=== PATIENT | female | born 1975 | race Caucasian/White ===

== ENCOUNTER 2016-08-29 19:35 | Emergency (ER) | payer MEDICAID ==
[~2016-08-29] VITALS: Ht 152.4 cm; Wt 120.0 kg
[~2016-08-29 19:35] MED LIST: Aspirin PO; IOHEXOL-350 100 ML BOTTLE ONE; LISI10TA5 PO; SODIUM CHLORIDE 0.9% 10ML VIAL ONE
[2016-08-29 21:43] LABS: BASOPHILS % 0.6 % (0.0-2.0); DIFFERENTIAL COMMENT 0; EOSINOPHILS % 0.6 % (0.0-5.0); HEMATOCRIT. 35.2 % (36.0-48.0); HEMOGLOBIN. 11.2 g/dL (12.0-16.0); LYMPHOCYTES % 13.3 % (20.0-50.0); MEAN CORPUSCULAR HEMOGLOBIN 22.7 pg (28.0-32.0); MEAN CORPUSCULAR HGB CONC 31.7 g/dL (31.0-37.0); MEAN CORPUSCULAR VOLUME 71.3 fL (81.0-99.0); MEAN PLATELET VOLUME 8.7 fl (7.4-10.4); MONOCYTES % 5.8 % (2.0-8.0); NEUTROPHILS % 79.7 % (40.0-76.0); PLATELET 252 x1000/uL (130-400); RED BLOOD CELL COUNT 4.94 mill/uL (4.2-5.4); RED CELL DISTRIBUTION WIDTH 15.5 % (11.6-14.6); WHITE BLOOD COUNT 15.8 x1000/uL (4.5-11.0)
[2016-08-29 21:45] LABS: PROTHROMBIN TIME 10.4 sec
[2016-08-29 21:49] LABS: ALANINE AMINOTRANSFERASE 23 IU/L (13-61); ALBUMIN 3.3 g/dL (3.4-5.0); ANION GAP 15; CALCIUM 8.5 mg/dL (8.5-10.1); CARBON DIOXIDE 28 mEq/L (21-32); CHLORIDE 100 mEq/L (98-107); INDEX HEMOLYSI 1 (1-3); INDEX ICTERIC 1 (1-4); INDEX LIPEMIC 1 (1-3); LIPASE 219 IU/L (73-393); UREA NITROGEN BLOOD 14 mg/dL (7-21)
[2016-08-29 21:53] LABS: eGFR > 60 mL/min (>60)
[2016-08-29 21:54] LABS: TROPONIN I < 0.02 ng/mL (0.00-0.04)
[2016-08-29] MEDS ORDERED: KETOROLAC 30MG/ML VIAL IV ONE (22:45)
[2016-08-30] MEDS: PENICILLIN G BENZATHINE 1,200,000 UNITS/2ML SYR IM NR ×3 (00:50→02:19)
[2016-08-30] MEDS ORDERED: SODIUM CHLORIDE 0.9% 1,000 ML IV ONE ×2 (02:15)
[2016-08-30] MEDS ORDERED: TRAMADOL 50MG TABLET PO NR (02:15)
[2016-08-30 04:27] VITALS: BP 145/91
== END 2016-08-30 05:50 | disposition home or self-care (01) ==
LOC: ER 22:13
DX: J02.9 Acute pharyngitis, unspecified (principal); E86.9 Volume depletion, unspecified; R00.0 Tachycardia, unspecified; I10 Essential (primary) hypertension; Z79.82 Long term (current) use of aspirin; Z98.51 Tubal ligation status
CPT/HCPCS: 36415; 71010; 71275; 80053; 83690; 84484; 85025; 85610; 85730; 93005; 96361; 96372; 96374; 99285; A4216; J0561; J1885; J7030; Q9967; Z7610

== ENCOUNTER 2016-09-23 08:10 | Emergency (ER) | payer MEDICAID ==
[~2016-09-23] VITALS: Ht 149.9 cm; Wt 118.0 kg
[~2016-09-23 08:10] MED LIST changes: -IOHEXOL-350 100 ML BOTTLE ONE; -SODIUM CHLORIDE 0.9% 10ML VIAL ONE
[2016-09-23] MEDS ORDERED: MORPHINE SULFATE 4 MG/ML CPJ (NOT FOR IM USE) IV ONE ×2 (08:45→09:00)
[2016-09-23] MEDS ORDERED: ONDANSETRON HCL 4MG/2ML VIAL IV ONE (08:45)
[2016-09-23] MEDS ORDERED: SODIUM CHLORIDE 0.9% 1,000 ML IV ONE (08:53)
[2016-09-23 09:10] LABS: BASOPHILS % 0.3 % (0.0-2.0); DIFFERENTIAL COMMENT 0; EOSINOPHILS % 2.1 % (0.0-5.0); HEMATOCRIT. 34.1 % (36.0-48.0); HEMOGLOBIN. 10.9 g/dL (12.0-16.0); LYMPHOCYTES % 37.1 % (20.0-50.0); MEAN CORPUSCULAR HEMOGLOBIN 22.5 pg (28.0-32.0); MEAN CORPUSCULAR HGB CONC 31.9 g/dL (31.0-37.0); MEAN CORPUSCULAR VOLUME 70.5 fL (81.0-99.0); MEAN PLATELET VOLUME 8.4 fl (7.4-10.4); MONOCYTES % 7.2 % (2.0-8.0); NEUTROPHILS % 53.3 % (40.0-76.0); PLATELET 293 x1000/uL (130-400); RED BLOOD CELL COUNT 4.84 mill/uL (4.2-5.4); RED CELL DISTRIBUTION WIDTH 15.8 % (11.6-14.6); WHITE BLOOD COUNT 8.3 x1000/uL (4.5-11.0)
[2016-09-23 09:18] LABS: CHLORIDE 103 mEq/L (98-107)
[2016-09-23 09:27] LABS: ALANINE AMINOTRANSFERASE 25 IU/L (13-61); ALBUMIN 3.1 g/dL (3.4-5.0); ANION GAP 13; CALCIUM 8.5 mg/dL (8.5-10.1); CARBON DIOXIDE 26 mEq/L (21-32); INDEX HEMOLYSI 1 (1-3); INDEX ICTERIC 1 (1-4); INDEX LIPEMIC 1 (1-3); UREA NITROGEN BLOOD 21 mg/dL (7-21); eGFR > 60 mL/min (>60)
[2016-09-23 10:31] VITALS: BP 150/75
== END 2016-09-23 10:38 | disposition home or self-care (01) ==
LOC: ER 08:49
DX: T21.21XA Burn of second degree of chest wall, initial encounter (principal); T31.0 Burns involving less than 10% of body surface; I10 Essential (primary) hypertension; E78.00 Pure hypercholesterolemia, unspecified; E11.9 Type 2 diabetes mellitus without complications; X11.8XXA Contact with other hot tap-water, initial encounter; Y93.89 Activity, other specified; Y92.89 Other specified places as the place of occurrence of the external cause; Y99.8 Other external cause status; Z98.890 Other specified postprocedural states
CPT/HCPCS: 36415; 80053; 85025; 96361; 96374; 96375; 96376; 99284; J2270; J2405; J7030; Z7610

== ENCOUNTER 2017-02-21 14:27 | Emergency (ER) | payer MEDICAID ==
[~2017-02-21] VITALS: Ht 149.9 cm; Wt 131.0 kg
[2017-02-21] MEDS ORDERED: IBUP-2030 PO (14:41)
[2017-02-21] MEDS: ACETAMINOPHEN 325MG TABLET PO STA (15:22)
[2017-02-21] MEDS: SODIUM CHLORIDE 0.9% 1,000 ML IV ONE (15:40)
[2017-02-21 15:51] LABS: CLARITY URINE CLOUDY (CLEAR); COLOR URINE YELLOW (YELLOW); GLUCOSE URINE NEGATIVE (NEGATIVE); KETONES URINE NEGATIVE (NEGATIVE); LEUKOCYTE ESTERASE URINE 2+ (NEGATIVE); NITRITE URINE NEGATIVE (NEGATIVE); OCCULT BLOOD URINE 3+ (NEGATIVE); PH URINE 5.5 (4.5-8.0); PROTEIN URINE 2+ (NEGATIVE); SPECIFIC GRAVITY URINE 1.016 (1.005-1.030); UROBILINOGEN URINE 0.2 E.U./dL (0.2-1.0)
[2017-02-21 15:55] LABS: BASOPHILS % 0.3 % (0.0-2.0); EOSINOPHILS % 0.4 % (0.0-5.0); HEMATOCRIT. 32.7 % (36.0-48.0); HEMOGLOBIN. 10.2 g/dL (12.0-16.0); LYMPHOCYTES % 13.3 % (20.0-50.0); MEAN CORPUSCULAR HEMOGLOBIN 19.8 pg (28.0-32.0); MEAN CORPUSCULAR VOLUME 63.7 fL (81.0-99.0); MEAN PLATELET VOLUME 8.6 fl (7.4-10.4); MONOCYTES % 4.1 % (2.0-8.0); NEUTROPHILS % 81.9 % (40.0-76.0); PLATELET 339 x1000/uL (130-400); RED BLOOD CELL COUNT 5.14 mill/uL (4.2-5.4); RED CELL DISTRIBUTION WIDTH 17.4 % (11.6-14.6)
[2017-02-21 16:05] LABS: CARBON DIOXIDE 29 mEq/L (21-32); CHLORIDE 102 mEq/L (98-107)
[2017-02-21 18:17] VITALS: BP 107/69
[2017-02-21 18:25] LABS: PLATELET ESTIMATE NORMAL
== END 2017-02-21 18:18 | disposition home or self-care (01) ==
LOC: ER 14:27
DX: N39.0 Urinary tract infection, site not specified (principal); R73.9 Hyperglycemia, unspecified; D63.1 Anemia in chronic kidney disease; E78.00 Pure hypercholesterolemia, unspecified; I12.9 Hypertensive chronic kidney disease with stage 1 through stage 4 chronic kidney disease, or unspecified chronic kidney disease; N18.9 Chronic kidney disease, unspecified; Z98.890 Other specified postprocedural states
CPT/HCPCS: 36415; 74000; 80053; 81001; 81025; 83690; 85025; 93005; 96360; 96361; 99285; J7030

== ENCOUNTER 2017-02-23 16:39 | Emergency (ER) | payer MEDICAID ==
[~2017-02-23] VITALS: Ht 152.4 cm; Wt 129.0 kg
[~2017-02-23 16:39] MED LIST changes: +IBUP-2030 PO
[2017-02-24] MEDS ORDERED: KETOROLAC 30MG/ML VIAL IV STA (00:27)
[2017-02-24] MEDS ORDERED: SODIUM CHLORIDE 0.9% 1,000 ML IV ONE ×2 (00:27→01:32)
[2017-02-24] MEDS ORDERED: ONDANSETRON HCL 4MG/2ML VIAL IV STA (00:27)
[2017-02-24 00:44] LABS: CLARITY URINE CLOUDY (CLEAR); COLOR URINE YELLOW (YELLOW); GLUCOSE URINE NEGATIVE (NEGATIVE); KETONES URINE NEGATIVE (NEGATIVE); LEUKOCYTE ESTERASE URINE NEGATIVE (NEGATIVE); NITRITE URINE NEGATIVE (NEGATIVE); OCCULT BLOOD URINE 1+ (NEGATIVE); PH URINE 5.5 (4.5-8.0); PROTEIN URINE 3+ (NEGATIVE); SPECIFIC GRAVITY URINE 1.021 (1.005-1.030)
[2017-02-24 00:45] LABS: BASOPHILS % 0.3 % (0.0-2.0); HEMATOCRIT. 30.9 % (36.0-48.0); HEMOGLOBIN. 9.8 g/dL (12.0-16.0); LYMPHOCYTES % 10.6 % (20.0-50.0); MEAN CORPUSCULAR HEMOGLOBIN 20.2 pg (28.0-32.0); MEAN CORPUSCULAR VOLUME 63.5 fL (81.0-99.0); MEAN PLATELET VOLUME 9.2 fl (7.4-10.4); MONOCYTES % 9.8 % (2.0-8.0); NEUTROPHILS % 79.3 % (40.0-76.0); PLATELET 196 x1000/uL (130-400); RED BLOOD CELL COUNT 4.87 mill/uL (4.2-5.4); RED CELL DISTRIBUTION WIDTH 17.6 % (11.6-14.6)
[2017-02-24 00:47] LABS: HCG SCREEN NEGATIVE
[2017-02-24 00:50] LABS: PLATELET ESTIMATE NORMAL
[2017-02-24 00:56] LABS: CARBON DIOXIDE 28 mEq/L (21-32); CHLORIDE 97 mEq/L (98-107); ETHANOL BLOOD < 10 mg/dL; TROPONIN I < 0.02 ng/mL (0.00-0.04)
[2017-02-24 01:02] LABS: *AMPHETAMINES SCREEN URINE NEGATIVE (NEGATIVE); *BARBITURATES SCREEN URINE NEGATIVE (NEGATIVE); *BENZODIAZEPINES SCREEN URINE NEGATIVE (NEGATIVE); *COCAINE SCREEN URINE NEGATIVE (NEGATIVE); CANNABINOID URINE SCREEN NEGATIVE (NEGATIVE); METHADONE URINE SCREEN NEGATIVE (NEGATIVE); OPIATES URINE SCREEN NEGATIVE (NEGATIVE); PHENCYCLIDINE URINE SCREEN NEGATIVE (NEGATIVE)
[2017-02-24] MEDS ORDERED: ACETAMINOPHEN 500MG TABLET PO SCH (01:53)
[2017-02-24] MEDS ORDERED: CEFTRIAXONE 1 G PREMIX 50 ML IV SCH (03:45)
[2017-02-24 05:01] VITALS: BP 144/79
== END 2017-02-24 05:51 | disposition home or self-care (01) ==
LOC: ER 17:11
DX: N39.0 Urinary tract infection, site not specified (principal); E87.6 Hypokalemia; D64.9 Anemia, unspecified; I10 Essential (primary) hypertension; E78.00 Pure hypercholesterolemia, unspecified; Z79.82 Long term (current) use of aspirin
CPT/HCPCS: 36415; 74176; 80053; 80305; 81001; 83690; 84484; 84703; 85025; 96374; 96375; 99285; G0482; J0696; J1885; J2405; J7030; Z7610

== ENCOUNTER 2018-04-25 21:59 | Emergency (ER) | payer MEDICAID ==
[~2018-04-25] VITALS: Ht 149.9 cm; Wt 125.0 kg
[2018-04-26] MEDS ORDERED: IBUPROFEN 600MG TABLET PO ONE (02:30)
[2018-04-26 02:41] VITALS: BP 122/74
[2018-04-26 02:47] LABS: BASOPHILS % 0.5 % (0.0-2.0); EOSINOPHILS % 1.6 % (0.0-5.0); HEMATOCRIT. 29.9 % (36.0-48.0); HEMOGLOBIN. 9.5 g/dL (12.0-16.0); LYMPHOCYTES % 42.3 % (20.0-50.0); MEAN CORPUSCULAR VOLUME 66.1 fL (81.0-99.0); MEAN PLATELET VOLUME 8.2 fl (7.4-10.4); MONOCYTES % 6.1 % (2.0-8.0); NEUTROPHILS % 49.5 % (40.0-76.0); PLATELET 290 x1000/uL (130-400); RED BLOOD CELL COUNT 4.52 mill/uL (4.2-5.4); RED CELL DISTRIBUTION WIDTH 17.2 % (11.6-14.6)
[2018-04-26 02:54] LABS: CHLORIDE 106 mEq/L (98-107)
[2018-04-26 02:56] LABS: HCG SCREEN NEGATIVE
[2018-04-26 03:47] LABS: PLATELET ESTIMATE NORMAL
== END 2018-04-26 06:18 | disposition home or self-care (01) ==
LOC: ER 21:59
DX: N83.292 Other ovarian cyst, left side (principal); N93.8 Other specified abnormal uterine and vaginal bleeding; D50.9 Iron deficiency anemia, unspecified; I10 Essential (primary) hypertension; Z98.890 Other specified postprocedural states; Z79.82 Long term (current) use of aspirin
CPT/HCPCS: 36415; 76830; 76856; 81025; 84703; 86850; 86900; 99284

== ENCOUNTER 2018-06-03 21:30 | Emergency (ER) | payer MEDICAID ==
[~2018-06-03] VITALS: Ht 149.9 cm; Wt 121.0 kg
[2018-06-04 01:28] LABS: CLARITY URINE TURBID (CLEAR); KETONES URINE TRACE (NEGATIVE); LEUKOCYTE ESTERASE URINE 1+ (NEGATIVE); NITRITE URINE NEGATIVE (NEGATIVE); OCCULT BLOOD URINE 3+ (NEGATIVE); PH URINE 5.5 (4.5-8.0); PROTEIN URINE 2+ (NEGATIVE); SPECIFIC GRAVITY URINE 1.021 (1.005-1.030); UROBILINOGEN URINE 0.2 E.U./dL (0.2-1.0)
[2018-06-04 01:33] LABS: COLOR URINE BLOODY (YELLOW)
[2018-06-04] MEDS ORDERED: ACETAMINOPHEN 325MG TABLET PO STA (03:11)
[2018-06-04 05:02] LABS: BASOPHILS % 0.3 % (0.0-2.0); EOSINOPHILS % 1.5 % (0.0-5.0); HEMATOCRIT. 31.7 % (36.0-48.0); LYMPHOCYTES % 39.6 % (20.0-50.0); MEAN CORPUSCULAR HEMOGLOBIN 20.8 pg (28.0-32.0); MEAN PLATELET VOLUME 8.6 fl (7.4-10.4); MONOCYTES % 6.9 % (2.0-8.0); NEUTROPHILS % 51.7 % (40.0-76.0); PLATELET 311 x1000/uL (130-400); RED CELL DISTRIBUTION WIDTH 18.3 % (11.6-14.6)
[2018-06-04 05:05] LABS: CHLORIDE 102 mEq/L (98-107)
[2018-06-04 05:15] LABS: B-HCG QUANTITATIVE < 1 mIU/mL (<3)
[2018-06-04 06:59] VITALS: BP 125/67
[2018-06-04 08:05] LABS: PLATELET ESTIMATE NORMAL
== END 2018-06-04 07:01 | disposition home or self-care (01) ==
LOC: ER 21:30
DX: N93.8 Other specified abnormal uterine and vaginal bleeding (principal); I11.9 Hypertensive heart disease without heart failure
CPT/HCPCS: 36415; 76830; 76856; 80053; 81003; 81025; 84702; 85025; 99284; Z7610

== ENCOUNTER 2019-09-06 09:41 | Emergency (ER) | payer MEDICAID ==
[~2019-09-06] VITALS: Ht 149.9 cm; Wt 125.0 kg
[2019-09-06] MEDS ORDERED: HYDRALAZINE 20MG/ML VIAL IV ONE (10:15)
[2019-09-06 10:19] LABS: BASOPHILS % 0.8 % (0.0-2.0); EOSINOPHILS % 1.6 % (0.0-5.0); HEMATOCRIT. 40.9 % (36.0-48.0); HEMOGLOBIN. 13.6 g/dL (12.0-16.0); LYMPHOCYTES % 35.5 % (20.0-50.0); MEAN CORPUSCULAR HEMOGLOBIN 25.9 pg (28.0-32.0); MEAN CORPUSCULAR VOLUME 77.8 fL (81.0-99.0); MEAN PLATELET VOLUME 9.4 fl (7.4-10.4); MONOCYTES % 6.2 % (2.0-8.0); NEUTROPHILS % 55.9 % (40.0-76.0); PLATELET 235 x1000/uL (130-400); RED BLOOD CELL COUNT 5.26 mill/uL (4.2-5.4); RED CELL DISTRIBUTION WIDTH 16.4 % (11.6-14.6)
[2019-09-06 10:28] LABS: CHLORIDE 101 mEq/L (98-107)
[2019-09-06 11:47] VITALS: BP 190/115
== END 2019-09-06 11:57 | disposition home or self-care (01) ==
LOC: ER 09:41
DX: I10 Essential (primary) hypertension (principal); R73.9 Hyperglycemia, unspecified; Z98.890 Other specified postprocedural states; Z79.82 Long term (current) use of aspirin
CPT/HCPCS: 36415; 71045; 80053; 83880; 84484; 85025; 93005; 96374; 99285; J0360

== ENCOUNTER 2020-01-06 03:19 | Inpatient (IN) | payer MEDICAID ==
[~2020-01-06] VITALS: Ht 144.8 cm; Wt 133.5 kg
[2020-01-06 04:47] LABS: BASOPHILS % 1.1 % (0.0-2.0); EOSINOPHILS % 1.2 % (0.0-5.0); HEMATOCRIT. 38.1 % (36.0-48.0); HEMOGLOBIN. 12.8 g/dL (12.0-16.0); LYMPHOCYTES % 20.6 % (20.0-50.0); MEAN CORPUSCULAR HEMOGLOBIN 27.1 pg (28.0-32.0); MEAN CORPUSCULAR VOLUME 80.9 fL (81.0-99.0); MEAN PLATELET VOLUME 9.1 fl (7.4-10.4); MONOCYTES % 6.1 % (2.0-8.0); PLATELET 237 x1000/uL (130-400); RED BLOOD CELL COUNT 4.71 mill/uL (4.2-5.4); RED CELL DISTRIBUTION WIDTH 14.2 % (11.6-14.6)
[2020-01-06 04:51] LABS: CHLORIDE 106 mEq/L (98-107)
[2020-01-06] MEDS ORDERED: MORPHINE SULFATE 4 MG/ML CPJ (NOT FOR IM USE) IV ONE ×2 (05:00→08:00)
[2020-01-06] MEDS ORDERED: ONDANSETRON HCL 4MG/2ML INJ IV ONE (05:00)
[2020-01-06 06:03] LABS: CLARITY URINE CLEAR (CLEAR); COLOR URINE YELLOW (YELLOW); KETONES URINE NEGATIVE (NEGATIVE); LEUKOCYTE ESTERASE URINE 3+ (NEGATIVE); NITRITE URINE NEGATIVE (NEGATIVE); OCCULT BLOOD URINE NEGATIVE (NEGATIVE); PROTEIN URINE 1+ (NEGATIVE); SPECIFIC GRAVITY URINE 1.022 (1.005-1.030); UROBILINOGEN URINE 0.2 E.U./dL (0.2-1.0)
[2020-01-06] MEDS ORDERED: KCL 20MEQ/100ML PREMIX 100 ML IV ONE (09:15)
[2020-01-06] MEDS ORDERED: METRONIDAZOLE 500 MG PREMIX 100 ML IV ONE (09:15)
[2020-01-06] MEDS ORDERED: CEFTRIAXONE 1 G PREMIX 50 ML IV ONE (09:15)
[2020-01-06] MEDS ORDERED: CEFTRIAXONE 1 G PREMIX 50 ML IV SCH (09:45)
[2020-01-06] MEDS ORDERED: MORPHINE SULFATE 2 MG/ML CPJ (NOT FOR IM USE) IV PRN (09:45)
[2020-01-06] MEDS ORDERED: ACETAMINOPHEN 325MG TABLET PO PRN (09:45)
[2020-01-06] MEDS ORDERED: IPRATROPIUM/ALBUTEROL 0.5-3(2.5)MG/3ML NEB HHN PRN (09:45)
[2020-01-06] MEDS ORDERED: ONDANSETRON HCL 4MG/2ML INJ IV PRN (09:45)
[2020-01-06] MEDS ORDERED: CLONIDINE 0.1MG TABLET PO PRN (09:45)
[2020-01-06] MEDS ORDERED: DIPHENHYDRAMINE 50MG/ML VIAL IV PRN (09:45)
[2020-01-06] MEDS: SODIUM CHLORIDE 0.9% 1,000 ML IV SCH ×2 (11:04→21:20)
[2020-01-06] MEDS ORDERED: DEXTROSE 50% WATER 50ML SYRINGE IV PRN (11:15)
[2020-01-06 12:00] VITALS: BP 144/85
[2020-01-06 12:34] VITALS: BP 144/85
[2020-01-06] MEDS: INSULIN LISPRO 100 UNITS/ML SUBCUT SCH ×3 (12:35→20:15)
[2020-01-06] MEDS: BLOOD SUGAR DIAGNOSTIC STRIP TEST SCH ×3 (12:35→20:04)
[2020-01-06] MEDS ORDERED: METF-414 MT (12:38)
[2020-01-06] MEDS ORDERED: AMLO5TAB88 PO (12:39)
[2020-01-06] MEDS ORDERED: GLIM1TAB MT (12:39)
[2020-01-06] MEDS ORDERED: ATOR20TA65 MT (12:39)
[2020-01-06] MEDS ORDERED: LOSA1TAB34 MT (12:40)
[2020-01-06 16:00] VITALS: BP 165/100
[2020-01-06] MEDS: MORPHINE SULFATE 2 MG/ML CPJ (NOT FOR IM USE) IV PRN ×2 (16:18→20:04)
[2020-01-06] MEDS: METFORMIN HCL 500MG TABLET PO SCH (17:23)
[2020-01-06] MEDS ORDERED: METRONIDAZOLE 500 MG PREMIX 100 ML IV SCH (18:00)
[2020-01-06 20:00] VITALS: BP 119/66
[2020-01-06] MEDS: AMLODIPINE 5MG TABLET PO SCH (20:03)
[2020-01-06] MEDS: ATORVASTATIN CALCIUM 20MG TABLET PO SCH (20:04)
[2020-01-06] MEDS: METRONIDAZOLE 500 MG PREMIX 100 ML IV SCH (21:22)
[2020-01-07] VITALS: BP 129/67
[2020-01-07 04:00] VITALS: BP 134/85
[2020-01-07 05:57] LABS: BASOPHILS % 0.3 % (0.0-2.0); EOSINOPHILS % 2.4 % (0.0-5.0); HEMATOCRIT. 32.5 % (36.0-48.0); HEMOGLOBIN. 10.8 g/dL (12.0-16.0); LYMPHOCYTES % 30.2 % (20.0-50.0); MEAN CORPUSCULAR HEMOGLOBIN 26.9 pg (28.0-32.0); MEAN CORPUSCULAR VOLUME 80.7 fL (81.0-99.0); MEAN PLATELET VOLUME 9.4 fl (7.4-10.4); MONOCYTES % 5.9 % (2.0-8.0); NEUTROPHILS % 61.2 % (40.0-76.0); PLATELET 217 x1000/uL (130-400); RED BLOOD CELL COUNT 4.03 mill/uL (4.2-5.4); RED CELL DISTRIBUTION WIDTH 14.1 % (11.6-14.6)
[2020-01-07 06:13] LABS: CHLORIDE 106 mEq/L (98-107)
[2020-01-07 06:21] LABS: LDL CHOLESTEROL 72 mg/dL (5-100)
[2020-01-07 06:23] LABS: HDL CHOLESTEROL 40 mg/dL (40-59)
[2020-01-07] MEDS: BLOOD SUGAR DIAGNOSTIC STRIP TEST SCH ×4 (06:51→20:36)
[2020-01-07] MEDS: METRONIDAZOLE 500 MG PREMIX 100 ML IV SCH ×3 (06:51→21:34)
[2020-01-07] MEDS: GLIMEPIRIDE 1MG TABLET PO SCH (06:53)
[2020-01-07] MEDS: METFORMIN HCL 500MG TABLET PO SCH ×2 (06:53→16:46)
[2020-01-07] MEDS: SODIUM CHLORIDE 0.9% 1,000 ML IV SCH (06:55)
[2020-01-07] MEDS: INSULIN LISPRO 100 UNITS/ML SUBCUT SCH ×4 (07:13→20:37)
[2020-01-07 08:00] VITALS: BP 126/64
[2020-01-07] MEDS: ASPIRIN 81MG TABLET PO SCH (08:39)
[2020-01-07] MEDS: LOSARTAN POTASSIUM 50 MG TABLET PO SCH (08:39)
[2020-01-07] MEDS: LISINOPRIL 10MG TABLET PO SCH (08:39)
[2020-01-07] MEDS: AMLODIPINE 5MG TABLET PO SCH ×2 (08:39→20:37)
[2020-01-07] MEDS: CEFTRIAXONE 1,000 MG in DEXTROSE 5% WATER 50 ML IV SCH (08:40)
[2020-01-07] MEDS ORDERED: CEFTRIAXONE 1,000 MG in DEXTROSE 5% WATER 50 ML IV SCH (10:00)
[2020-01-07] MEDS ORDERED: POTASSIUM CHLORIDE 20MEQ TABLET SR PO NR (11:15)
[2020-01-07 12:00] VITALS: BP 117/75
[2020-01-07 16:00] VITALS: BP 124/82
[2020-01-07 20:00] VITALS: BP 136/86
[2020-01-07] MEDS: ATORVASTATIN CALCIUM 20MG TABLET PO SCH (20:37)
[2020-01-08] VITALS: BP 110/57
[2020-01-08 04:00] VITALS: BP 110/61
[2020-01-08] MEDS: MORPHINE SULFATE 2 MG/ML CPJ (NOT FOR IM USE) IV PRN (04:26)
[2020-01-08] MEDS: METRONIDAZOLE 500 MG PREMIX 100 ML IV SCH ×3 (05:03→21:59)
[2020-01-08] MEDS: BLOOD SUGAR DIAGNOSTIC STRIP TEST SCH ×4 (05:16→21:58)
[2020-01-08] MEDS: INSULIN LISPRO 100 UNITS/ML SUBCUT SCH ×4 (06:21→21:57)
[2020-01-08 07:34] LABS: BASOPHILS % 0.5 % (0.0-2.0); EOSINOPHILS % 2.4 % (0.0-5.0); HEMATOCRIT. 33.1 % (36.0-48.0); HEMOGLOBIN. 11.1 g/dL (12.0-16.0); LYMPHOCYTES % 35.3 % (20.0-50.0); MEAN CORPUSCULAR HEMOGLOBIN 27.3 pg (28.0-32.0); MEAN CORPUSCULAR VOLUME 81.1 fL (81.0-99.0); MEAN PLATELET VOLUME 9.3 fl (7.4-10.4); MONOCYTES % 6.9 % (2.0-8.0); NEUTROPHILS % 54.9 % (40.0-76.0); PLATELET 246 x1000/uL (130-400); RED BLOOD CELL COUNT 4.08 mill/uL (4.2-5.4); RED CELL DISTRIBUTION WIDTH 14.2 % (11.6-14.6)
[2020-01-08 08:00] VITALS: BP 131/89
[2020-01-08 08:21] LABS: CHLORIDE 109 mEq/L (98-107)
[2020-01-08] MEDS: METFORMIN HCL 500MG TABLET PO SCH ×2 (08:25→17:40)
[2020-01-08] MEDS: SODIUM CHLORIDE 0.9% 1,000 ML IV SCH ×2 (08:25→21:55)
[2020-01-08] MEDS: CEFTRIAXONE 1,000 MG in DEXTROSE 5% WATER 50 ML IV SCH (08:25)
[2020-01-08] MEDS: GLIMEPIRIDE 1MG TABLET PO SCH (08:25)
[2020-01-08] MEDS: ASPIRIN 81MG TABLET PO SCH (08:25)
[2020-01-08] MEDS: AMLODIPINE 5MG TABLET PO SCH ×2 (08:26→21:56)
[2020-01-08] MEDS: LOSARTAN POTASSIUM 50 MG TABLET PO SCH (08:26)
[2020-01-08] MEDS: LISINOPRIL 10MG TABLET PO SCH (08:26)
[2020-01-08 12:00] VITALS: BP 148/87
[2020-01-08 16:00] VITALS: BP 113/56
[2020-01-08 20:00] VITALS: BP 137/77
[2020-01-08] MEDS: ATORVASTATIN CALCIUM 20MG TABLET PO SCH (21:56)
[2020-01-09] VITALS: BP 160/69
[2020-01-09 04:00] VITALS: BP 135/80
[2020-01-09 06:22] LABS: CHLORIDE 108 mEq/L (98-107)
[2020-01-09] MEDS: METRONIDAZOLE 500 MG PREMIX 100 ML IV SCH ×2 (06:29→14:20)
[2020-01-09 06:41] LABS: BASOPHILS % 0.4 % (0.0-2.0); EOSINOPHILS % 2.2 % (0.0-5.0); HEMATOCRIT. 33.6 % (36.0-48.0); HEMOGLOBIN. 11.4 g/dL (12.0-16.0); LYMPHOCYTES % 37.8 % (20.0-50.0); MEAN CORPUSCULAR HEMOGLOBIN 27.3 pg (28.0-32.0); MEAN CORPUSCULAR VOLUME 80.5 fL (81.0-99.0); MEAN PLATELET VOLUME 9.3 fl (7.4-10.4); MONOCYTES % 6.4 % (2.0-8.0); NEUTROPHILS % 53.2 % (40.0-76.0); PLATELET 264 x1000/uL (130-400); RED BLOOD CELL COUNT 4.17 mill/uL (4.2-5.4); RED CELL DISTRIBUTION WIDTH 14.2 % (11.6-14.6)
[2020-01-09] MEDS: SODIUM CHLORIDE 0.9% 1,000 ML IV SCH (06:50)
[2020-01-09] MEDS: BLOOD SUGAR DIAGNOSTIC STRIP TEST SCH ×2 (06:50→12:09)
[2020-01-09] MEDS: INSULIN LISPRO 100 UNITS/ML SUBCUT SCH ×2 (06:50→12:15)
[2020-01-09] MEDS: METFORMIN HCL 500MG TABLET PO SCH (06:56)
[2020-01-09] MEDS: GLIMEPIRIDE 1MG TABLET PO SCH (06:56)
[2020-01-09 08:00] VITALS: BP 142/80
[2020-01-09] MEDS: LOSARTAN POTASSIUM 50 MG TABLET PO SCH (09:36)
[2020-01-09] MEDS: ASPIRIN 81MG TABLET PO SCH (09:36)
[2020-01-09] MEDS: CEFTRIAXONE 1,000 MG in DEXTROSE 5% WATER 50 ML IV SCH (09:36)
[2020-01-09] MEDS: LISINOPRIL 10MG TABLET PO SCH (09:36)
[2020-01-09] MEDS: AMLODIPINE 5MG TABLET PO SCH (09:36)
[2020-01-09 12:00] VITALS: BP 122/71
[2020-01-09] MEDS ORDERED: LEVO750T46 MT (14:21)
[2020-01-09] MEDS ORDERED: METR500T MT (14:21)
[2020-01-09 14:32] VITALS: BP 122/71
== END 2020-01-09 17:00 | disposition home or self-care (01) | DRG 244 ==
LOC: ER 04:05 → 5WST 09:30 → ENRESERV 11:33 → 5WST 12:50
PROVIDERS: ADMIT Internal Medicine; ATTEND Internal Medicine
DX: K57.92 Diverticulitis of intestine, part unspecified, without perforation or abscess without bleeding (principal); D25.9 Leiomyoma of uterus, unspecified; E11.9 Type 2 diabetes mellitus without complications; E66.01 Morbid (severe) obesity due to excess calories; E78.00 Pure hypercholesterolemia, unspecified; E78.5 Hyperlipidemia, unspecified; E87.6 Hypokalemia; I10 Essential (primary) hypertension; K76.0 Fatty (change of) liver, not elsewhere classified; K86.9 Disease of pancreas, unspecified; N39.0 Urinary tract infection, site not specified; R16.0 Hepatomegaly, not elsewhere classified; Z98.891 History of uterine scar from previous surgery; Z68.44 Body mass index [BMI] 60.0-69.9, adult; Z79.899 Other long term (current) drug therapy
CPT/HCPCS: 36415; 71045; 74176; 80048; 80053; 80061; 81003; 82962; 83036; 83605; 84443; 85025; 86301; 93005; 93970; 99285; J0696; J1815; J2270; J2405; J3480; J3490; J7060

== ENCOUNTER 2020-05-16 20:13 | Emergency (ER) | payer MEDICAID ==
[~2020-05-16] VITALS: Ht 149.9 cm; Wt 130.4 kg
[~2020-05-16 20:13] MED LIST changes: +AMLO5TAB88 PO; +ATOR20TA65 MT; +GLIM1TAB MT; -IBUP-2030 PO; +LEVO750T46 MT; -LISI10TA5 PO; +LOSA1TAB34 MT; +METF-414 MT; +METR500T MT
[2020-05-16 20:38] VITALS: BP 185/101
[2020-05-16] MEDS ORDERED: ACETAMINOPHEN 325MG TABLET PO STA (21:41)
[2020-05-16 22:53] LABS: BASOPHILS % 0.6 % (0.0-2.0); EOSINOPHILS % 0.2 % (0.0-5.0); HEMATOCRIT. 40.8 % (36.0-48.0); HEMOGLOBIN. 13.7 g/dL (12.0-16.0); LYMPHOCYTES % 30.4 % (20.0-50.0); MEAN CORPUSCULAR HEMOGLOBIN 26.9 pg (28.0-32.0); MEAN CORPUSCULAR VOLUME 80.2 fL (81.0-99.0); MONOCYTES % 6.4 % (2.0-8.0); NEUTROPHILS % 62.4 % (40.0-76.0); PLATELET 184 x1000/uL (130-400); RED BLOOD CELL COUNT 5.09 mill/uL (4.2-5.4); RED CELL DISTRIBUTION WIDTH 14.3 % (11.6-14.6)
[2020-05-16 22:57] LABS: CHLORIDE 100 mEq/L (98-107)
[2020-05-16 23:01] LABS: ETHANOL BLOOD < 10 mg/dL; PROTHROMBIN TIME 10.2 sec (9.6-11.0)
[2020-05-16 23:02] LABS: HCG SCREEN NEGATIVE
[2020-05-17 00:02] LABS: CLARITY URINE CLEAR (CLEAR); COLOR URINE YELLOW (YELLOW); KETONES URINE NEGATIVE (NEGATIVE); LEUKOCYTE ESTERASE URINE NEGATIVE (NEGATIVE); NITRITE URINE NEGATIVE (NEGATIVE); OCCULT BLOOD URINE 3+ (NEGATIVE); PH URINE 5.5 (4.5-8.0); PROTEIN URINE 2+ (NEGATIVE); SPECIFIC GRAVITY URINE 1.023 (1.005-1.030); UROBILINOGEN URINE 0.2 E.U./dL (0.2-1.0)
[2020-05-17 00:20] LABS: *AMPHETAMINES SCREEN URINE NEGATIVE (NEGATIVE); *BARBITURATES SCREEN URINE NEGATIVE (NEGATIVE); *BENZODIAZEPINES SCREEN URINE NEGATIVE (NEGATIVE); *COCAINE SCREEN URINE NEGATIVE (NEGATIVE); CANNABINOID URINE SCREEN NEGATIVE (NEGATIVE); METHADONE URINE SCREEN NEGATIVE (NEGATIVE); OPIATES URINE SCREEN NEGATIVE (NEGATIVE); PHENCYCLIDINE URINE SCREEN NEGATIVE (NEGATIVE)
== END 2020-05-17 02:54 | disposition home or self-care (01) ==
LOC: ER 20:13
DX: K86.2 Cyst of pancreas (principal); E11.9 Type 2 diabetes mellitus without complications; E78.00 Pure hypercholesterolemia, unspecified; Z98.51 Tubal ligation status
CPT/HCPCS: 36415; 71045; 76705; 80053; 80305; 80320; 81003; 81025; 83605; 84703; 85025; 86850; 86900; 87804; 93005; 99285; G0480

== ENCOUNTER 2020-12-31 09:47 | Emergency (ER) | payer MEDICAID ==
[~2020-12-31] VITALS: Ht 149.9 cm; Wt 134.8 kg
[~2020-12-31 09:47] MED LIST changes: +OMEP40CA12 MT
[2020-12-31] MEDS ORDERED: ONDANSETRON HCL 4MG/2ML INJ IV ONE (12:45)
[2020-12-31] MEDS ORDERED: MORPHINE SULFATE 4 MG/ML CPJ (NOT FOR IM USE) IV ONE (12:45)
[2020-12-31 13:11] LABS: BASOPHILS % 0.6 % (0.0-2.0); EOSINOPHILS % 1.3 % (0.0-5.0); HEMATOCRIT. 39.6 % (36.0-48.0); HEMOGLOBIN. 13.1 g/dL (12.0-16.0); LYMPHOCYTES % 26.1 % (20.0-50.0); MEAN CORPUSCULAR HEMOGLOBIN 26.9 pg (28.0-32.0); MEAN CORPUSCULAR VOLUME 81.2 fL (81.0-99.0); PLATELET 238 x1000/uL (130-400); RED BLOOD CELL COUNT 4.87 mill/uL (4.2-5.4); RED CELL DISTRIBUTION WIDTH 14.5 % (11.6-14.6)
[2020-12-31 13:12] LABS: CLARITY URINE CLEAR (CLEAR); COLOR URINE YELLOW (YELLOW); KETONES URINE NEGATIVE (NEGATIVE); LEUKOCYTE ESTERASE URINE 2+ (NEGATIVE); NITRITE URINE NEGATIVE (NEGATIVE); OCCULT BLOOD URINE NEGATIVE (NEGATIVE); PROTEIN URINE 1+ (NEGATIVE); SPECIFIC GRAVITY URINE 1.023 (1.005-1.030); UROBILINOGEN URINE 0.2 E.U./dL (0.2-1.0)
[2020-12-31 13:20] LABS: CHLORIDE 101 mEq/L (98-107)
[2020-12-31 13:30] LABS: HCG SCREEN NEGATIVE
[2020-12-31] MEDS ORDERED: KETOROLAC 15MG/ML VIAL IV ONE (14:00)
[2020-12-31] MEDS ORDERED: AMOX-424 MT (15:34)
[2020-12-31] MEDS ORDERED: HYDR-4001 MT (15:34)
[2020-12-31 16:03] VITALS: BP 138/75
== END 2020-12-31 16:06 | disposition home or self-care (01) ==
LOC: ER 09:47
DX: K57.92 Diverticulitis of intestine, part unspecified, without perforation or abscess without bleeding (principal); E11.9 Type 2 diabetes mellitus without complications; I10 Essential (primary) hypertension; Z79.899 Other long term (current) drug therapy; Z98.890 Other specified postprocedural states
CPT/HCPCS: 36415; 74177; 80053; 81003; 81025; 83690; 84703; 85025; 96374; 96375; 99285; J1885; J2405

== ENCOUNTER 2021-11-30 16:02 | Emergency (ER) | payer MEDICAID ==
[~2021-11-30] VITALS: Ht 152.4 cm; Wt 137.0 kg
[~2021-11-30 16:02] MED LIST changes: +AMOX-424 MT; +HYDR-4001 MT; -OMEP40CA12 MT; +OMEP40CA20 MT
[2021-11-30 16:38] VITALS: BP 166/95
[2021-11-30 19:22] LABS: BASOPHILS % 0.7 % (0.0-2.0); EOSINOPHILS % 1.4 % (0.0-5.0); HEMATOCRIT. 40.7 % (36.0-48.0); HEMOGLOBIN. 13.4 g/dL (12.0-16.0); LYMPHOCYTES % 41.4 % (20.0-50.0); MEAN CORPUSCULAR HEMOGLOBIN 26.9 pg (28.0-32.0); MEAN CORPUSCULAR VOLUME 81.3 fL (81.0-99.0); MEAN PLATELET VOLUME 9.3 fl (7.4-10.4); MONOCYTES % 5.2 % (2.0-8.0); NEUTROPHILS % 51.3 % (40.0-76.0); PLATELET 270 x1000/uL (130-400); RED BLOOD CELL COUNT 5.01 mill/uL (4.2-5.4); RED CELL DISTRIBUTION WIDTH 14.4 % (11.6-14.6)
[2021-11-30 19:29] LABS: CHLORIDE 102 mEq/L (98-107)
[2021-11-30 19:30] LABS: PROTHROMBIN TIME 10.3 sec (9.6-11.0)
[2021-11-30 19:39] LABS: HCG SCREEN NEGATIVE
[2021-11-30 19:50] LABS: ETHANOL BLOOD < 10 mg/dL
[2021-11-30 19:56] LABS: CLARITY URINE CLEAR (CLEAR); COLOR URINE YELLOW (YELLOW); KETONES URINE NEGATIVE (NEGATIVE); LEUKOCYTE ESTERASE URINE NEGATIVE (NEGATIVE); NITRITE URINE NEGATIVE (NEGATIVE); OCCULT BLOOD URINE NEGATIVE (NEGATIVE); PH URINE 5.5 (4.5-8.0); PROTEIN URINE 2+ (NEGATIVE)
[2021-11-30 20:14] LABS: *AMPHETAMINES SCREEN URINE NEGATIVE (NEGATIVE); *BARBITURATES SCREEN URINE NEGATIVE (NEGATIVE); *BENZODIAZEPINES SCREEN URINE NEGATIVE (NEGATIVE); *COCAINE SCREEN URINE NEGATIVE (NEGATIVE); CANNABINOID URINE SCREEN NEGATIVE (NEGATIVE); METHADONE URINE SCREEN NEGATIVE (NEGATIVE); OPIATES URINE SCREEN NEGATIVE (NEGATIVE); PHENCYCLIDINE URINE SCREEN NEGATIVE (NEGATIVE)
== END 2021-11-30 21:07 | disposition home or self-care (01) ==
LOC: ER 16:02
DX: R11.0 Nausea (principal); R42 Dizziness and giddiness; E11.9 Type 2 diabetes mellitus without complications; I10 Essential (primary) hypertension; Z98.890 Other specified postprocedural states; Z79.899 Other long term (current) drug therapy
CPT/HCPCS: 36415; 71045; 80053; 80305; 80320; 81003; 81025; 83735; 83880; 84484; 84703; 85025; 99284; G0480

== ENCOUNTER 2022-01-02 21:16 | Emergency (ER) | payer MEDICAID ==
[~2022-01-02] VITALS: Ht 149.9 cm; Wt 134.0 kg
[2022-01-02 23:18] LABS: BASOPHILS % 0.4 % (0.0-2.0); CHLORIDE 101 mEq/L (98-107); EOSINOPHILS % 1.7 % (0.0-5.0); HEMATOCRIT. 36.9 % (36.0-48.0); HEMOGLOBIN. 12.3 g/dL (12.0-16.0); LYMPHOCYTES % 33.9 % (20.0-50.0); MEAN CORPUSCULAR HEMOGLOBIN 26.7 pg (28.0-32.0); MEAN CORPUSCULAR VOLUME 80.5 fL (81.0-99.0); MEAN PLATELET VOLUME 8.7 fl (7.4-10.4); MONOCYTES % 5.7 % (2.0-8.0); NEUTROPHILS % 58.3 % (40.0-76.0); PLATELET 249 x1000/uL (130-400); RED BLOOD CELL COUNT 4.59 mill/uL (4.2-5.4); RED CELL DISTRIBUTION WIDTH 14.1 % (11.6-14.6)
[2022-01-02 23:20] LABS: HCG SCREEN NEGATIVE
[2022-01-02 23:26] LABS: ETHANOL BLOOD < 10 mg/dL
[2022-01-02] MEDS ORDERED: MORPHINE SULFATE 4 MG/ML CPJ (NOT FOR IM USE) IV STA (23:36)
[2022-01-02] MEDS ORDERED: ONDANSETRON HCL 4MG/2ML INJ IV STA (23:36)
[2022-01-02 23:41] LABS: CLARITY URINE CLEAR (CLEAR); COLOR URINE YELLOW (YELLOW); KETONES URINE NEGATIVE (NEGATIVE); LEUKOCYTE ESTERASE URINE NEGATIVE (NEGATIVE); NITRITE URINE NEGATIVE (NEGATIVE); OCCULT BLOOD URINE NEGATIVE (NEGATIVE); PH URINE 5.5 (4.5-8.0); PROTEIN URINE 2+ (NEGATIVE); SPECIFIC GRAVITY URINE 1.017 (1.005-1.030); UROBILINOGEN URINE 0.2 E.U./dL (0.2-1.0)
[2022-01-02] MEDS ORDERED: SODIUM CHLORIDE 0.9% 1,000 ML IV ONE (23:45)
[2022-01-03] LABS: *AMPHETAMINES SCREEN URINE NEGATIVE (NEGATIVE); *BARBITURATES SCREEN URINE NEGATIVE (NEGATIVE); *BENZODIAZEPINES SCREEN URINE NEGATIVE (NEGATIVE); *COCAINE SCREEN URINE NEGATIVE (NEGATIVE); CANNABINOID URINE SCREEN NEGATIVE (NEGATIVE); METHADONE URINE SCREEN NEGATIVE (NEGATIVE); OPIATES URINE SCREEN NEGATIVE (NEGATIVE); PHENCYCLIDINE URINE SCREEN NEGATIVE (NEGATIVE)
[2022-01-03 00:10] LABS: PROTHROMBIN TIME 10.9 sec (9.6-11.0)
[2022-01-03] MEDS ORDERED: MORPHINE SULFATE 2 MG/ML CPJ (NOT FOR IM USE) IV ONE (02:00)
[2022-01-03] MEDS ORDERED: TOPUD PO (02:45)
[2022-01-03] MEDS ORDERED: ONDA4TAB50 MT (02:45)
[2022-01-03] MEDS ORDERED: MORP15TA67 MT (02:45)
[2022-01-03] MEDS ORDERED: IBUP-2028 MT (02:45)
[2022-01-03 03:20] VITALS: BP 140/70
== END 2022-01-03 03:20 | disposition home or self-care (01) ==
LOC: ER 21:16
DX: K85.90 Acute pancreatitis without necrosis or infection, unspecified (principal); K86.2 Cyst of pancreas; I11.9 Hypertensive heart disease without heart failure; E11.9 Type 2 diabetes mellitus without complications; Z79.82 Long term (current) use of aspirin; Z98.890 Other specified postprocedural states
CPT/HCPCS: 36415; 74176; 80053; 80305; 80320; 81003; 81025; 83690; 84703; 85025; 85610; 96361; 96374; 96375; 96376; 99284; J2270; J2405; J7030; G0480

== ENCOUNTER 2022-06-29 14:54 | Emergency (ER) | payer MEDICAID ==
[~2022-06-29] VITALS: Ht 152.4 cm; Wt 129.0 kg
[~2022-06-29 14:54] MED LIST changes: +IBUP-2028 MT; -LEVO750T46 MT; +LEVO750T68 MT; +MORP15TA67 MT; +ONDA4TAB50 MT; +TOPUD PO
[2022-06-29] MEDS ORDERED: IBUPROFEN 600MG TABLET PO ONE (23:30)
[2022-06-29 23:55] LABS: BASOPHILS % 0.4 % (0.0-2.0)
[2022-06-29 23:56] LABS: CHLORIDE 100 mEq/L (98-107)
[2022-06-30 00:05] LABS: HCG SCREEN NEGATIVE
[2022-06-30 00:11] LABS: LYMPHOCYTES % 40.5 % (20.0-50.0); MEAN CORPUSCULAR VOLUME 80.7 fL (81.0-99.0); MEAN PLATELET VOLUME 8.8 fl (7.4-10.4); MONOCYTES % 5.7 % (2.0-8.0); NEUTROPHILS % 51.4 % (40.0-76.0); PLATELET 278 x1000/uL (130-400); RED BLOOD CELL COUNT 4.83 mill/uL (4.2-5.4); RED CELL DISTRIBUTION WIDTH 14.5 % (11.6-14.6)
[2022-06-30] MEDS ORDERED: IBUPROFEN 600MG TABLET PO NR (02:00)
[2022-06-30 02:16] VITALS: BP 159/89
[2022-06-30] MEDS ORDERED: IBUP-2029 MT (05:51)
== END 2022-06-30 06:05 | disposition home or self-care (01) ==
LOC: ER 14:54
DX: N83.202 Unspecified ovarian cyst, left side (principal); E11.9 Type 2 diabetes mellitus without complications; I10 Essential (primary) hypertension; Z98.890 Other specified postprocedural states; Z79.899 Other long term (current) drug therapy
CPT/HCPCS: 36415; 74176; 76830; 76856; 80053; 84703; 85025; 99285

== ENCOUNTER 2024-07-24 21:00 | Emergency (ER) | payer SELFPAY ==
[~2024-07-24] VITALS: Ht 152.4 cm; Wt 117.4 kg
[~2024-07-24 21:00] MED LIST changes: -GLIM1TAB MT; +GLIM1TAB55 MT; +IBUP-2029 MT
[2024-07-24 22:01] VITALS: O2SAT 96
[2024-07-25 00:32] LABS: BASOPHILS % 0.5 % (0.0-2.0); HEMATOCRIT. 36.7 % (36.0-48.0); HEMOGLOBIN. 12.2 g/dL (12.0-16.0); LYMPHOCYTES % 40.4 % (20.0-50.0); MEAN CORPUSCULAR HEMOGLOBIN 27.5 pg (28.0-32.0); MEAN CORPUSCULAR HGB CONC 33.4 g/dL (31.0-37.0); MEAN CORPUSCULAR VOLUME 82.4 fL (81.0-99.0); MEAN PLATELET VOLUME 9.2 fl (7.4-10.4); MONOCYTES % 5.4 % (2.0-8.0); NEUTROPHILS % 48.7 % (40.0-76.0); PLATELET 245 x1000/uL (130-400); RED BLOOD CELL COUNT 4.46 mill/uL (4.2-5.4); RED CELL DISTRIBUTION WIDTH 13.8 % (11.6-14.6)
[2024-07-25 00:47] LABS: CALCIUM 9.1 mg/dL (8.7-10.4); POTASSIUM 3.5 mEq/L (3.5-5.1)
[2024-07-25 00:53] LABS: CREATININE 1.3 mg/dL (0.6-1.0)
[2024-07-25 01:53] LABS: CLARITY URINE CLEAR (CLEAR); COLOR URINE YELLOW (YELLOW); GLUCOSE URINE TRACE (NEGATIVE); KETONES URINE NEGATIVE (NEGATIVE); LEUKOCYTE ESTERASE URINE NEGATIVE (NEGATIVE); NITRITE URINE NEGATIVE (NEGATIVE); OCCULT BLOOD URINE NEGATIVE (NEGATIVE); PH URINE 7.5 (4.5-8.0); PROTEIN URINE 2+ (NEGATIVE); UROBILINOGEN URINE 0.2 E.U./dL (0.2-1.0)
[2024-07-25] MEDS: KETOROLAC 15MG/ML VIAL IV ONE (02:57)
[2024-07-25 03:10] VITALS: BP 139/96; PULSE 99; RESP 16; TEMP 36.7; O2SAT 97
[2024-07-25] MEDS ORDERED: IOHEXOL-300 100 ML BOTTLE ONE (04:06)
[2024-07-25 04:58] LABS: SQUAMOUS EPITHELIAL CELL URINE FEW /lpf (RARE/1+)
[2024-07-25 04:59] LABS: RBC URINE 0-2 /hpf (0-2); WBC URINE 0-2 /hpf (0-2)
[2024-07-25 05:00] LABS: BACTERIA URINE NONE SEEN
== END 2024-07-25 03:16 | disposition home or self-care (01) ==
LOC: ER 21:00
DX: R22.1 Localized swelling, mass and lump, neck (principal); E11.9 Type 2 diabetes mellitus without complications; I10 Essential (primary) hypertension; Z79.84 Long term (current) use of oral hypoglycemic drugs; Z79.899 Other long term (current) drug therapy; Z98.890 Other specified postprocedural states
CPT/HCPCS: 99285; 81025; 70491; 80048; 81003; 85025; 36415; J1885; Q9967